=== PATIENT | male | born 1960 | race Caucasian/White ===

== ENCOUNTER 2017-09-26 22:54 | Emergency (ER) | payer SELFPAY ==
[~2017-09-26] VITALS: Ht 182.9 cm; Wt 87.5 kg
[2017-09-26 23:10] LABS: HEMATOCRIT 42.8 % (38.0-50.0); HEMOGLOBIN 14.4 G/DL (12.5-16.6); MCH 33.3 PG (29.0-34.0); MCHC 33.6 G/DL (30.0-36.0); MCV 99.1 FL (86-99); PLATELET COUNT 240 K/uL (156-360); RBC DIS.WIDTH-CV 13.1 % (11.8-14.6); RBC DIS.WIDTH-SD 48.2 % (39-53); RED BLOOD COUNT 4.32 M/uL (4.00-5.50); WHITE BLOOD COUNT 13.3 K/uL (4.1-10.2)
[2017-09-26 23:30] LABS: TROP-I INTERPRETATION NEGATIVE; TROPONIN-I < 0.01 ng/mL (0.0-0.30)
[2017-09-26 23:34] LABS: CHLORIDE 104 MEQ/L (99-109); POTASSIUM 4.3 MEQ/L (3.7-5.4); SODIUM 140 MEQ/L (136-147)
[2017-09-26 23:39] LABS: GFR ESTIMATE (CALCULATED) > 59 mL/min/ (58.99-99999); GLUCOSE 131 mg/dL (70-99); UREA NITROGEN (BUN) 14 mg/dL (9-23)
[2017-09-27 01:41] VITALS: BP 138/65
== END 2017-09-27 01:41 | disposition home or self-care (01) ==
LOC: EME 22:54 → EDBD 22:54 → EME 09-27 01:41
DX: R55 Syncope and collapse (principal)
CPT/HCPCS: 71046; 80048; 84484; 85027; 93005; 99281; 99285